=== PATIENT | male | born 2000 | race Caucasian/White ===

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

== ENCOUNTER 2020-06-25 16:25 | Emergency (ER) | payer SELFPAY ==
[~2020-06-25 16:25] MED LIST: Amoxicillin 500 MG Cap ONE
--- NOTE | 2020-06-25 16:57 | EDM.PDOC ---
ED HPI GENERAL MEDICAL PROBLEM - General Chief Complaint: Upper Extremity Injury/Pain Stated Complaint: HAND INJURY Time Seen by Provider: 06/25/20 16:45 Source of Information: Reports: Patient History Limitations: Reports: No Limitations - History of Present Illness INITIAL COMMENTS - FREE TEXT/NARRATIVE: patient presented to the ER with a injury to right index finger by a nailgun. He reports it occurred an hour ago while at work. The nailgun injury went through the right index and middle finger. He removed the nail prior to arrival. Last tetanus was 2014. Reports minimal pain and swelling. Here for evaluation. Onset: Today Duration: Minutes: (30), Hour(s): Location: Reports: Upper Extremity, Right Improves with: Reports: None Worsens with: Reports: None - Related Data Allergies Allergy/AdvReac Type Severity Reaction Status Date / Time No Known Allergies Allergy Verified 07/07/18 16:36 Home Meds: Home Meds NK [No Known Home Meds] 07/07/18 [History] Past Medical History Cardiovascular History: Reports: None Gastrointestinal History: Reports: None Genitourinary History: Reports: None Neurological History: Reports: None Social & Family History - Family History Family Medical History: No Pertinent Family History Cardiac: Reports: None Respiratory: Reports: None Neurological: Reports: None Psychiatric: Reports: None Review of Systems - Review of Systems Review Of Systems: See Below Constitutional: Reports: No Symptoms Eyes: Reports: No Symptoms Ears: Reports: No Symptoms Nose: Reports: No Symptoms Respiratory: Reports: No Symptoms Cardiovascular: Reports: No Symptoms Genitourinary: Reports: No Symptoms Skin: Reports: No Symptoms Neurological: Reports: No Symptoms ED EXAM, GENERAL - Physical Exam Exam: See Below Exam Limited By: No Limitations General Appearance: Alert, WD/WN, No Apparent Distress Nose: Normal Inspection Throat/Mouth: Normal Inspection Head: Atraumatic Respiratory/Chest: No Respiratory Distress Cardiovascular: Normal Peripheral Pulses GI/Abdominal: Normal Bowel Sounds, Non-Tender Extremities: Other (there is evidence of penetrating wound to the right index and middle finger. Mild swelling and limited decreases ROM due to pain. no active bleeding) Course - Re-Assessments/Exams Free Text/Narrative Re-Assessment/Exam: 06/25/20 16:56 wound was soaked with chlorhexidine, then washed and cleaned. tetanus was updated xrays finger - no fracture seen. no FB, PO abx was given and prescribed for prophylaxis again soft tissue infection. Amoxicillin 500mg PO x 3 days Departure - Departure Time of Disposition: 17:15 Disposition: Home, Self-Care 01 Condition: Good Clinical Impression: Penetrating wound of finger - Discharge Information *PRESCRIPTION DRUG MONITORING PROGRAM REVIEWED*: Not Applicable *COPY OF PRESCRIPTION DRUG MONITORING REPORT IN PATIENT DOMENIC: Not Applicable - Problem List & Annotations (1) Penetrating wound of finger SNOMED Code(s): 789578676 Code(s): S61.239A - PNCTR W/O FB OF UNSP FINGER W/O DAMAGE TO NAIL, INIT Status: Acute Priority: Medium Qualifiers: Encounter type: initial encounter Qualified Code(s): S61.239A - Puncture wound without foreign body of unspecified finger without damage to nail, initial encounter - Problem List Review Problem List Initiated/Reviewed/Updated: No - Assessment/Plan Plan: - take antibiotics twice daily for a total of 3 days - Tylenol and ibuprofen for pain control - Tylenol 500mg every 4-6 hrs, and ibuprofen 400mg every 6 hrs as needed for pain control - return to the ER if pain got worse or signs of wound infection
[2020-06-25 16:58] VITALS: BP 121/88; PULSE 80
[2020-06-25] MEDS: Diphtheria,Pertussis(Acell),Tetanus Vaccine 0.5 ML SDV IM ONE (17:10)
[2020-06-25] MEDS: Amoxicillin 500 MG Cap PO ONE (17:27)
--- NOTE | 2020-06-26 12:08 | CR ---
DATE OF SERVICE: 06/25/20 CLINICAL DATA: injury RIGHT HAND: AP and lateral views were performed. No acute fracture or dislocation. No lytic or blastic bone lesions. No radiodense foreign bodies. [id number] [facility]
== END 2020-06-25 17:25 | disposition home or self-care (01) ==
LOC: LB.ED 16:25
DX: S61.230A Puncture wound without foreign body of right index finger without damage to nail, initial encounter (principal); S61.232A Puncture wound without foreign body of right middle finger without damage to nail, initial encounter; Z23 Encounter for immunization; W29.4XXA Contact with nail gun, initial encounter; Y99.0 Civilian activity done for income or pay
CPT/HCPCS: 73120-RT; 90471; 90715; 99283-25; A9270-GY

== ENCOUNTER 2021-01-20 11:55 | Emergency (ER) | payer BC ==
--- NOTE | 2021-01-20 20:28 | EDM.PDOC ---
ED HPI GENERAL MEDICAL PROBLEM - General Chief Complaint: Lower Extremity Injury/Pain Stated Complaint: LEFT LEG INJURY / SWOLLEN Time Seen by Provider: 01/20/21 12:05 - History of Present Illness INITIAL COMMENTS - FREE TEXT/NARRATIVE: Pt was wrestling with a friend 2 days ago and injured his Lt knee. He tells me it is still quite painful and he walks with a limp. It is swollen. There was no bleeding. No other injuries. Left Knee Pain Score (Numeric/FACES): 2 - Related Data Allergies Allergy/AdvReac Type Severity Reaction Status Date / Time No Known Allergies Allergy Verified 07/07/18 16:36 Home Meds: Home Meds NK [No Known Home Meds] 07/07/18 [History] Past Medical History - Past Health History Medical/Surgical History: Denies Medical/Surgical History Cardiovascular History: Reports: None Gastrointestinal History: Reports: None Genitourinary History: Reports: None Musculoskeletal History: Reports: Other (See Below) Other Musculoskeletal History: knee injury Neurological History: Reports: None Social & Family History - Family History Family Medical History: No Pertinent Family History Cardiac: Reports: None Respiratory: Reports: None Neurological: Reports: None Psychiatric: Reports: None - Tobacco Use Years of Tobacco use: 3 Packs/Tins Daily: 0.5 - Caffeine Use Caffeine Use: Reports: Coffee - Recreational Drug Use Recreational Drug Use: Yes Drug Use in Last 12 Months: Yes Recreational Drug Type: Reports: Marijuana/Hashish Recreational Drug Use Frequency: Weekly Review of Systems - Review of Systems Review Of Systems: Comprehensive ROS is negative, except as noted in HPI. Musculoskeletal: Reports: Other (Lt knee pain ) ED EXAM, GENERAL - Physical Exam Exam: See Below Extremities: Other (Lt knee is mildly swollen. Pain with light palpation. He can only bear partial weight. Skin is intact.) Course - Vital Signs Last Recorded V/S: Last Vital Signs Temp 98 F 01/20/21 12:03 Pulse 83 01/20/21 12:03 Resp 16 01/20/21 12:03 BP 108/81 01/20/21 12:03 Pulse Ox 97 01/20/21 12:03 - Orders/Labs/Meds Orders: Active Orders 24 hr Category Date Time Status Knee 3V Lt [CR] Stat Exams 01/20/21 12:14 Taken - Radiology Interpretation Free Text/Narrative:: x-ray is negative for fracture or acute bony abnormality. Departure - Departure Time of Disposition: 13:00 Disposition: Home, Self-Care 01 Condition: Good Clinical Impression: Left knee sprain Qualifiers: Encounter type: initial encounter Involved ligament of knee: unspecified ligament Qualified Code(s): S83.92XA - Sprain of unspecified site of left knee, initial encounter - Discharge Information *PRESCRIPTION DRUG MONITORING PROGRAM REVIEWED*: Not Applicable *COPY OF PRESCRIPTION DRUG MONITORING REPORT IN PATIENT DOMENIC: Not Applicable Instructions: RICE Therapy for Routine Care of Injuries, [id number] Referrals: PCP,None [Primary Care Provider] - Forms: ED Department Discharge Additional Instructions: weight bearing as tolerated. Care Plan Goals: ibuprofen 600mg three times a day. use crutches as directed. F/ u at clinic next Monday With April at 2pm. Sepsis Event Note (ED) - Evaluation Sepsis Screening Result: No Definite Risk - Focused Exam Vital Signs: Vital Signs Temp Pulse Resp BP Pulse Ox 01/20/21 12:03 98 F 83 16 108/81 97 - My Orders Last 24 Hours: My Active Orders 01/20/21 12:14 Knee 3V Lt [CR] Stat - Assessment/Plan Last 24 Hours: My Active Orders 01/20/21 12:14 Knee 3V Lt [CR] Stat
--- NOTE | 2021-01-21 08:24 | CR ---
Date of Service: 01/20/21 Clinical Data: Knee injury while wrestling. LEFT KNEE: No acute fracture or dislocation. No lytic or blastic bone lesions. There is a small joint effusion. No significant arthritic changes. [id number] [facility]
== END 2021-01-20 13:02 | disposition home or self-care (01) ==
LOC: LB.ED 11:55
DX: S83.92XA Sprain of unspecified site of left knee, initial encounter (principal); Z72.0 Tobacco use; X50.9XXA Other and unspecified overexertion or strenuous movements or postures, initial encounter
CPT/HCPCS: 73562-LT; 99283-25

== ENCOUNTER 2024-09-08 18:18 | Emergency (ER) | payer SELFPAY | END 2024-09-08 19:30 | disposition home or self-care (01) | LOC: LB.ED 18:18 | DX: S83.92XA Sprain of unspecified site of left knee, initial encounter (principal); F17.210 Nicotine dependence, cigarettes, uncomplicated; X50.1XXA Overexertion from prolonged static or awkward postures, initial encounter; Y93.01 Activity, walking, marching and hiking | CPT/HCPCS: 99283 ==

== ENCOUNTER 2025-05-19 01:51 | Emergency (ER) | payer MEDICAID ==
[2025-05-19] MEDS: Bacitracin Oint 1 GM U/D Packet TOP ONE (02:15)
[2025-05-19] MEDS: Ketorolac 15 MG/ML SDV IVPUSH ONE (02:15)
== END 2025-05-19 02:40 | disposition home or self-care (01) ==
LOC: LB.ED 01:51
DX: T23.232A Burn of second degree of multiple left fingers (nail), not including thumb, initial encounter (principal); T20.20XA Burn of second degree of head, face, and neck, unspecified site, initial encounter; T31.0 Burns involving less than 10% of body surface
CPT/HCPCS: 16020; 96374; 96375; 99283; A9270; J1885; J2270